=== PATIENT | female | born 1945 | race Caucasian/White ===

== ENCOUNTER 2024-01-30 13:42 | Emergency (ER) | payer MEDICARE ==
[~2024-01-30] VITALS: Ht 154.9 cm; Wt 54.4 kg
[2024-01-30 13:48] VITALS: BP_SYST 127; PULSE 55; RESP 16; TEMP 96.9; O2SAT 95
[2024-01-30 14:12] LABS: BASOPHILS % (AUTO) 0.4 % (0.0-2.0); EOSINOPHILS % (AUTO) 0.2 % (0.0-4.0); HEMATOCRIT 39.6 % (36-48); HEMOGLOBIN 12.7 g/dL (12.0-16.0); LYMPHOCYTES # (AUTO) 0.8 K/uL (1.0-5.5); LYMPHOCYTES % (AUTO) 10.9 % (20.5-51.5); MEAN CORPUSCULAR HEMOGLOBIN 29 pg (27-31); MEAN CORPUSCULAR HGB CONC 32 % (32-36); MEAN CORPUSCULAR VOLUME 89 fL (79.0-98.0); MONOCYTES # (AUTO) 0.6 K/uL (0.0-1.0); MONOCYTES % (AUTO) 8.1 % (1.7-9.3); NEUTROPHILS # (AUTO) 5.6 K/uL (1.8-7.7); NEUTROPHILS % (AUTO) 80.4 % (40.0-70.0); PLATELET COUNT (AUTO) 216 K/uL (130-430); RED BLOOD CELL COUNT(AUTO) 4.46 MIL/uL (4.2-6.2); RED CELL DISTRIBUTION WIDTH 16.1 % (9.0-15.0)
[2024-01-30 14:22] LABS: ALANINE AMINOTRANSFERASE 14 U/L (12-78); ALBUMIN 4.1 g/dL (3.4-4.8); ANION GAP 17 (5-15); ASPARTATE AMINOTRANSFERASE 33 U/L (10-37); BILIRUBIN,DIRECT 0.7 mg/dL (0.0-0.3); CALCIUM 9.1 mg/dL (8.4-11.0); CARBON DIOXIDE 18 mmol/L (23-29); CHLORIDE 105 mmol/L (98-107); CREATININE 2.27 mg/dL (0.55-1.30); GLUCOSE 71 mg/dL (74-106); LIPASE 30 U/L (16-77); POTASSIUM 4.3 mmol/L (3.5-5.1); SODIUM SERUM 140 mmol/L (136-145); TOTAL BILIRUBIN 1.3 mg/dL (0.0-1.0); TOTAL PROTEIN, SERUM 7.8 g/dL (6.4-8.3); UREA NITROGEN, BLOOD 53 mg/dL (8-21)
[2024-01-30] MEDS: ONDANSETRON HCL 4 MG/2 ML VIAL IVP ONE (15:38)
[2024-01-30] MEDS: KETOROLAC TROMETHAMINE 30 MG VIAL IVP ONE (15:38)
[2024-01-30] MEDS: NACL 0.9% 1,000 ML IV ONE (15:40)
[2024-01-30] MEDS: SODIUM PHOSPHATE,MONO-DIBASIC 133 ML ENEMA RC ONE (16:00)
[2024-01-30] MEDS: MINERAL OIL 133 ML ENEMA RC ONE (16:45)
[2024-01-30] MEDS ORDERED: POLY17PO4 PO (19:07)
[2024-01-30] MEDS: HYDROcodone/ACETAMIN 5-325 MG TAB (NORCO/ VICODIN) PO ONE (23:52)
[2024-01-31] MEDS ORDERED: DEXTROSE 50% JECT 50 ML DISP.SYRIN ONE (00:03)
[2024-01-31] MEDS: DEXTROSE 50% JECT 50 ML DISP.SYRIN IVP ONE (00:08)
[2024-01-31 00:45] VITALS: BP_SYST 116; PULSE 86; RESP 16; TEMP 96.8; O2SAT 100
== END 2024-01-31 00:45 | disposition short-term general hospital (02) ==
LOC: SED 13:42
DX: K59.00 Constipation, unspecified (principal); R10.84 Generalized abdominal pain; R06.02 Shortness of breath; I10 Essential (primary) hypertension; Z90.710 Acquired absence of both cervix and uterus
CPT/HCPCS: 99285; 74176; 96374; 96361; 96375 ×2; 80076; 80048; 83690; 85025; 36415; 82948; J1885; J2405; J7030